=== PATIENT | male | born 1950 | race Caucasian/White ===

== ENCOUNTER → 2017-08-10 | Day surgery (SDC) | payer OTHER, BC ==
[~2017-08-10] VITALS: Ht 177.8 cm; Wt 93.0 kg
[~2017-08-10] MED LIST: ACETAMINOPHEN 325 MG TAB PO PRN; ADENOSINE IV SOLN 3 MG/ML 20 ML VIAL ONE; ASPI1TAB83 PO; ATOR-22 PO; ATOR-24 PO; ATROPINE SULFATE 0.1 MG/ML 5ML SYR IV PRN; CLOPIDOGREL BISULFATE 300 MG TAB PO ONE; CLOPIDOGREL BISULFATE 300 MG TAB PO STA; CLOPIDOGREL BISULFATE 75 MG TAB PO SCH; FENTANYL CITRATE INJ 50 MCG/1 ML 2 ML VIAL ONE; HEPARIN SOD (PORCINE) 1000 UNIT/ML 10 ML VIAL ONE; IBUP-1459 PO; LISI-729 PO; METO25TA3 PO; MIDAZOLAM HCL 1 MG/ML 2ML VIAL ONE; NITROGLYCERIN 0.4 MG SL PER TAB CHARGE SL PRN; NITROGLYCERIN/D5W 100MCG/ML 20ML SYR ONE; NTRSLP4 SL; NiCARDipine HCL INJ 2.5 MG/ML 10 ML AMP ONE; PLV75 PO; SODIUM CHLORIDE 0.9% 1000ML 1,000 ML IV SCH; SODIUM CHLORIDE 0.9% 1000ML 250 ML IV PRN
[2017-08-10 07:12] VITALS: BP 134/74; PULSE 61; TEMP 36.6; O2SAT 98; Ht 177.8 cm; Wt 93.0 kg
--- NOTE | 2017-08-10 08:45 | History & Physical Bridge Note ---
H&P Re-Evaluation Bridge Note: I have examined the patient, reviewed the History & Physical and in the interval since the performance of the History & Physical I have noted the following changes of clinical significance: No changes noted
--- NOTE | 2017-08-10 08:46 | Pre Sedation Assessment ---
Pre Sedation Assessment General Date of Sedation: Aug 10, 2017. Vital Signs Past 12 Hours Date Time Temp Pulse Resp B/P (MAP) Pulse Ox O2 Delivery O2 Flow Rate FiO2 08/10/17 07:12 36.6 61 18 134/74 (94) 98 Room Air Review Cardiovascular: regular rate, rhythm, no edema, no gallop, no murmur Lungs: chest non-tender, lungs clear Pre-Sedation Airway Assessment Smoking Status: Never Smoker Hx of Sleep Apnea: No Short Thick Neck: No Thyro-mental Distance: > 3 Finger Breadths Oral Cavity: WNL Mallampati Classification: Class II NPO Status Date of Last Intake of Fluids: Aug 09, 2017 Time of Last Intake of Fluids: 2200 Date of Last Intake of Solids: Aug 09, 2017 Time of Last Intake of Solids: 1999 Procedure Planning Contraindications for Sedation: None Current Medications Reviewed: Yes Notes The planned sedation has been discussed with the patient. Informed Consent was obtained. I have identified the patient, determined the appropriateness of sedation and have assessed the patient immediately prior to the procedure. All medicine(s) and interventions are by my order.
--- NOTE | 2017-08-10 10:06 | [facility] Post Operative Brief Note ---
Preliminary Procedure Note Procedure Date Aug 10, 2017. Pre-Procedure Diagnosis Angina, Positive Stress Test AUC Score 8 Post-Procedure Diagnosis Severe CAD Procedure(s) Performed Coronary Angiography, Left Heart Cath, LV Angiography Rail Operator Dr. Mono Hawthorne Lead Pharmacy Technician(s) Bela Negrete Estimated Blood Loss <15cc Medication(s) Fentanyl (12.5 mcg IV), Heparin (5000u IV), Nicardipine (300 mcg intraarterial after sheath insertion), Versed (1 mg IV), Lidocaine 1% (local infiltration) Preliminary Findings Right dominant coronary anatomy LM normal size, mild calcification LAD long Type 3 with diffuse calcification, 60-70% midvessel stenosis after large D1. D1 with 90% mid vessel stenosis LCX large but non dominant with large bifurcating OM and large PL branch. Distal OM branch occlusion 100% with L-L fill. Cx 30% prox, 40% after OM , OM long 50% RCA Dominant with diffuse moderate atherosclerosis LV EF 65% Recommendations PCI without planned CABG Specimens None Fluids (cc crystalloids) 47 Anesthesia Start 900 End 925 eBnji Mariee RN Disposition [employer] Holding/Recovery
--- NOTE | 2017-08-10 10:09 | Post Sedation Assessment ---
Post Sedation Assessment General Date of Sedation Aug 10, 2017. Vital Signs: Vital Signs Past 12 Hours Date Time Temp Pulse Resp B/P (MAP) Pulse Ox O2 Delivery O2 Flow Rate FiO2 08/10/17 07:12 36.6 61 18 134/74 (94) 98 Room Air Post Procedure Recovery Score Activity: (2) Moves 4 extremities * Respiration: (2) Deep breath/cough Circulation: (2) +/-20% PreAnes Value Consciousness: (2) Fully Awake Oxygen Saturation: (2) > 92% On Room Air Post Anesthesia Score: 10 Discharge Sedation Level of Care: Fast Track Phase II Post Sedation Plan On clinical assessment, the patient appears to have tolerated the sedation without complications. Patient is recovering as anticipated. Patient will continue to be monitored by nursing and may be discharged when sedation discharge criteria are met per below protocol. Upon Completions of procedure and additional 15 minutes continue every 5 minute vital signs and the P.A.R. score; then discharge to a Phase I or Fast Track to Phase II per the following guidelines: * Discharge Patient to appropriate Phase II area if PAR is 8 or greater or return to pre- procedure baseline. The post - procedure orders will be as directed. * If PAR score is less than 8 or not return to pre-procedure baseline then patient will follow Phase I monitoring till PAR is reached for Phase II. The Phase I may be done in procedure room or may call to secure a Phase I area. * If naloxone or flumazenil are used for reversal, hold in Phase I for an additional 60 -120 minutes before discharge to Phase II. Please call the Sedation Physician to re-evaluate and complete post-note for discharge to Phase II area. Do NOT discharge from procedure sedation or Phase 1 until post- sedation evaluation note is complete by procedure /sedation MD Sedation Discharge Instructions to be given to the patient at discharge to home.
--- NOTE | 2017-08-10 10:17 | Cardiac Catheterization ---
Procedure Note Procedure Date Aug 10, 2017. Pre-Procedure Diagnosis Positive Stress Test AUC Score 7 Post-Procedure Diagnosis Severe CAD Procedure(s) Performed Fractional Flow Brooks Physical Therapy Attendant Michael Reference Data Expert(s) Caden Estimated Blood Loss 15 Medication(s) Fentanyl, Heparin, Nicardipine, Versed, Lidocaine 1% Summary of Findings -- FFR of LAD, mid circumflex -- For full details of patients coronary angiography please see cath report dictated by Dr. Hawthorne. Patient with intermediate LAD disease and mild to moderate circumflex disease. Also noted to have severe distal diagonal disease. Decision to proceed with FFR. 6Fr right radial artery JL3.5 guide used to cannulate LM Straight FFR wire placed into distal LAD iFR 0.88 FFR 0.75 FFR wire placed into distal circumflex iFR 0.99 Post procedure angiography showed no coronary complications. Summary: 1. Severe obstructive LAD (FFR 0.75) and diagonal disease. 2. Non-obstructive mid circumflex disease (iFR 0.99). Recommendations: Plan for PCI of LAD and diagonal later this week. Hemodynamics Rest Ao: 101/55/75 Final Ao: 99/57/76 LV: 106/2 Recommendations PCI without planned CABG Specimens None Radiation Exposure (mGy) 1919 Contrast (mls) 130 Visi Fluids (cc crystalloids) 287 Drains None Anesthesia Moderate Procedural Complication(s) None Disposition [employer] [facility]/Recovery ACC Data Cardiac Status Clinical evaluation leading to the procedure CAD Presntation: Positive Stress Test Anginal Classification: CCS III Heart Failure: No, NYHA Class: CCS I Cardiogenic Shock w/in 24Hrs: No Cardiac Arrest w/in 24Hrs: No Imaging studies past 6 months: Yes Stress studies past 6 months: Yes Stress Echocardiogram: Yes - Indeterminant Diagnostic Physician's Name: Mono Hawthorne M.D. Status: Elective Closure Device Closure Device: StarClose, Radial Band Recommendations: PCI without planned CABG Intraprocedure Events Significant Dissection: No Perforation: No
--- NOTE | 2017-08-10 13:10 | Discharge Instructions ---
Discharge Instructions Procedure Procedure Date: Aug 10, 2017. Reason for Visit: Dyspnea On Exertion *Dr Hawthorne Doing*. Discharge Discharge Date: Aug 10, 2017. Discharge Diagnosis: Coronary artery disease Last Recorded Wt (Kilograms): 93 Anesthesia Post Anesthesia Instructions: If you have had General Anesthesia or IV Sedation: * Do not drive today. * Resume driving when surgeon permits. * Do not make important decisions or sign legal documents today. * Call surgeon for: 1. Temperature elevations greater than 101 degrees F. 2. Uncontrollable pain. 3. Excessive bleeding. 4. Persistent nausea and vomiting. 5. Medication intolerance (nausea, vomiting or rash). * For nausea and vomiting use only clear liquids such as: tea, soda, bouillon until nausea subsides, then gradually increase diet as tolerated. * If you have any concerns or questions, call your surgeon's office. If physician is unavailable and it is an emergency, call 911 or go to the nearest emergency room. Instructions Activity Recommendations: limitations as noted below Recommended Home Diet: resume previous diet Allergies: Coded Allergies: Sulfamethoxazole w/Trimethoprim (Unverified Allergy, Unknown, unknown, ) Follow Up Additional Instructions: ACTIVITY RECOMMENDATIONS: It is common to feel weak and fatigue for a few days. * Do not drive or operate any motorized equipment for the next three days. * Limit stair usage (2 or 3 trips a day only) for the next three days. * Do not lift anything heavier than 10 pounds for the next three days. * Do not engage in vigorous exercise or any sports for the next five days. * You may shower the day after your procedure, but do not immerse the area for three days. Cleanse the site gently with soap and water. SPECIAL CARE INSTRUCTIONS: * You may replace the pressure dressing or band-aid the morning after the procedure. * After your procedure, it is normal to have a small bruise or small lump at the site. Examine your site daily for any change in the bruise or lump, redness, swelling, drainage or numbness. Notify your doctor if any change. BLEEDING: * If there is a small amount of bleeding at the site, lie down and apply firm pressure with a clean cloth for ten minutes. When the bleeding stops, lie quietly keeping the procedure limb straight for six hours. Notify your doctor as soon as possible. * If the bleeding does not stop after ten minutes or if there is a large amount of bleeding or spurting, call 911 immediately. Continue to lie down and hold firm pressure until help arrives. SKIN IRRITATION: * You may experience some redness and/or swelling in the area where radiation was administered. If any skin irritation occurs, please contact your family physician. FOLLOW UP VISIT: Keep any scheduled doctor appointments. Follow-up with: Cardiac neurology technologist 08/12 at 12:30 Robel Coleman Recommendations: Call your doctor if: * Temperature above 101 degrees * Pain not relieved by pain medicine ordered * There is increased drainage or redness from any incision * You have any unanswered questions or concerns. Your Doctors Instructions noted above were prepared by provider Mono Hawthorne. Patient Signature Section: Patient Instructions Signature Page Romero Randhawa Patient (or Guardian) Signature/Date: I have read and understand the instructions given to me by my caregivers. Caregiver/RN/Doctor Signature/Date: The above-named patient and/or guardian has received patient instructions on this date. + Original Patient Signature Page (only) stays with chart. Please make copy for patient.
[2017-08-10 13:30] VITALS: BP 152/68; PULSE 63; O2SAT 100
--- NOTE | 2017-08-10 21:28 | CARDIAC CATH REPORT ---
PROCEDURE: Left heart catheterization, coronary and LV angiography. INDICATIONS: Exertional dyspnea, abnormal stress testing. HISTORY OF PRESENT ILLNESS: The patient is a 67-year-old male with history of prior diagnostic cardiac catheterization in 2007 after a syncopal event, demonstrating diffuse coronary calcification and atherosclerosis, had 50% mid LAD stenosis. Most recently, he has been notable for having a change in functional capacity, has exertional dyspnea since late last summer, now limiting in activities. Stress testing was equivocal. Stress echocardiography demonstrated flat LV function. He is referred for diagnostic cardiac catheterization. ACCESS: Right radial artery. CATHETERS: A 6-H[place]ian long [place] sheath, 5-Haitian brachial 3.5, 5-Haitian straight pigtail. CONTRAST: Nonionic, 116 mL Visipaque. IV FLUIDS: 47 mL normal saline. Sedation start time 9:01, end time 9:26. Monitor, Homer Mariee RN. MEDICATIONS: Sedation, 1 mg Versed and 12.5 mcg of IV fentanyl. Local infiltration of access site was performed using 1% lidocaine. After an arterial sheath was inserted, the patient received 300 mcg intraarterial injection of nicardipine. After central access gained, 5000 units IV heparin was given. COMPLICATIONS: None. RADIATION EXPOSURE: 3.4 minutes fluoroscopy, 1319 milligrays, 8154 DAP score. RESULTS: CORONARY ANGIOGRAPHY: Note that anatomy is right dominant. There is diffuse calcification and coronary atherosclerosis in all vasculature. LEFT MAIN: Left main is shortened and trifurcates to give rise to left anterior descending, a trivial ramus intermedius and the left circumflex. There is no disease in the left main. Mild calcification is visualized. LEFT ANTERIOR DESCENDING: Left anterior descending is type 3 in distribution with apical portion reaching well around the apex. The left anterior descending gives rise to a large septal, followed by a small diagonal branch. At the end of its proximal third, it gives rise to a large diagonal branch which parallels left anterior descending. Left anterior descending then courses to terminate well beyond the apex. Within the left anterior descending, there is diffuse calcification in its proximal third with moderate irregularities throughout the entire vessel. There is a discrete 70% stenosis after the origin of the second diagonal, disease extends into the origin of the second diagonal. The second diagonal also has a discrete 90% stenosis in its mid portion with a large portion beyond this area being supplied toward the lateral apex. LEFT CIRCUMFLEX: Left circumflex is large but nondominant and gives rise to a bifurcating obtuse marginal and a large posterolateral branch. Within the left circumflex, there is, as in all vessels, diffuse coronary atherosclerosis. There is a 50% narrowing after the obtuse marginal, part of the posterolateral branch. The obtuse marginal itself has a long area of 50% stenosis with distal complete occlusion of the inferior sub-branch which fills a small segment via left to left collateral. RIGHT CORONARY ARTERY: The right coronary artery is large in caliber and dominant in distribution and gives rise to a sinoatrial branch at its proximal third; at the AV groove, a long posterior descending artery, and along the AV groove, a long posterior ventricular branch. Within the right coronary artery, there are diffuse luminal irregularities of moderate severity in its middle and proximal segments with moderate ectasia, but no obstruction. LEFT VENTRICULAR ANGIOGRAPHY: The left ventricle is hyperdynamic, EF greater than 65%. There is no mitral insufficiency. HEMODYNAMICS: Initial aortic root pressure was 101/55 with a mean of 75. LV pressure was 105/1 with an EDP of 2. Following completion of study, aortic root pressure was 96/53 with a mean of 72. FINAL IMPRESSIONS: 1. Calcification and diffuse coronary atherosclerosis in all vasculature with right dominant anatomy. 2. Bifurcation lesion of the left anterior descending extending into the origin of a large second diagonal branch, narrowing the left anterior descending artery by 70% with a discrete 90% stenosis in the mid portion of the large second diagonal branch. 3. Nonobstructive atherosclerosis of the left circumflex and proximal circumflex obtuse marginal with 50% with distal occlusion 100% of the circumflex obtuse marginal inferior sub-branch as a small branch vessel disease. 4. Normal to hyperdynamic left ventricular function. RECOMMENDATIONS: The patient was referred for flow wire assessment of the left anterior descending artery lesion which was found to be significant. Left circumflex was not found to be hemodynamically significant. PLAN: The patient will return in separate setting for coronary intervention of the left anterior descending and left anterior descending diagonal. The patient begun on oral load with Plavix, atorvastatin increased to 80 mg per day. Anticipatory return on 08/12/2017.
== END | disposition home or self-care (01) ==
LOC: C.CATH 06:56
PROVIDERS: ATTEND Internal Medicine Cardiovascular Disease
DX: R06.00 Dyspnea, unspecified (principal); I25.10 Atherosclerotic heart disease of native coronary artery without angina pectoris; I10 Essential (primary) hypertension; E78.5 Hyperlipidemia, unspecified; Z79.82 Long term (current) use of aspirin; Z88.2 Allergy status to sulfonamides

== ENCOUNTER 2017-08-17 06:39 | Observation (INO) | payer OTHER, BC ==
[2017-08-12 11:30] VITALS: BP 136/72; PULSE 63; TEMP 36.6; O2SAT 96; BMI 29.0
[~2017-08-17] VITALS: Ht 177.8 cm; Wt 92.9 kg
[2017-08-17] VITALS (13 sets, daily range): BP systolic 128–147; BP diastolic 53–90; PULSE 59–87; TEMP 36.4–37.3; O2SAT 91–100; Ht 177.8 cm; Wt 92.9 kg
[~2017-08-17 06:39] MED LIST changes: -ACETAMINOPHEN 325 MG TAB PO PRN; -ADENOSINE IV SOLN 3 MG/ML 20 ML VIAL ONE; -ATOR-22 PO; -ATROPINE SULFATE 0.1 MG/ML 5ML SYR IV PRN; -CLOPIDOGREL BISULFATE 300 MG TAB PO ONE; -CLOPIDOGREL BISULFATE 300 MG TAB PO STA; -CLOPIDOGREL BISULFATE 75 MG TAB PO SCH; -FENTANYL CITRATE INJ 50 MCG/1 ML 2 ML VIAL ONE; -HEPARIN SOD (PORCINE) 1000 UNIT/ML 10 ML VIAL ONE; -IBUP-1459 PO; -MIDAZOLAM HCL 1 MG/ML 2ML VIAL ONE; -NITROGLYCERIN 0.4 MG SL PER TAB CHARGE SL PRN; -NITROGLYCERIN/D5W 100MCG/ML 20ML SYR ONE; -NiCARDipine HCL INJ 2.5 MG/ML 10 ML AMP ONE; -SODIUM CHLORIDE 0.9% 1000ML 1,000 ML IV SCH; -SODIUM CHLORIDE 0.9% 1000ML 250 ML IV PRN
--- NOTE | 2017-08-17 07:36 | Pre Sedation Assessment ---
Pre Sedation Assessment General Date of Sedation: Aug 17, 2017. Vital Signs Past 12 Hours Date Time Temp Pulse Resp B/P (MAP) Pulse Ox O2 Delivery O2 Flow Rate FiO2 08/17/17 06:52 36.5 87 18 128/65 (86) 95 Room Air Review Cardiovascular: regular rate, rhythm, no edema Lungs: chest non-tender, lungs clear Pre-Sedation Airway Assessment Smoking Status: Never Smoker Hx of Sleep Apnea: No Hx of difficult intubation: No Short Thick Neck: No Thyro-mental Distance: > 3 Finger Breadths Oral Cavity: WNL Mallampati Classification: Class I ASA Classification: Class II NPO Status Date of Last Intake of Fluids: Aug 16, 2017 Time of Last Intake of Fluids: 0900 Date of Last Intake of Solids: Aug 16, 2017 Time of Last Intake of Solids: 2100 Procedure Planning Contraindications for Sedation: None Current Medications Reviewed: Yes Notes The planned sedation has been discussed with the patient. Informed Consent was obtained. I have identified the patient, determined the appropriateness of sedation and have assessed the patient immediately prior to the procedure. All medicine(s) and interventions are by my order.
[2017-08-17] MEDS ORDERED: HEPARIN SOD (PORCINE) 1000 UNIT/ML 10 ML VIAL ONE ×2 (07:55→09:01)
[2017-08-17] MEDS ORDERED: NiCARDipine HCL INJ 2.5 MG/ML 10 ML AMP ONE (07:55)
[2017-08-17] MEDS ORDERED: NITROGLYCERIN/D5W 100MCG/ML 20ML SYR ONE (07:55)
[2017-08-17] MEDS ORDERED: MIDAZOLAM HCL 1 MG/ML 2ML VIAL ONE ×2 (07:56→09:12)
[2017-08-17] MEDS ORDERED: FENTANYL CITRATE INJ 50 MCG/1 ML 2 ML VIAL ONE (07:56)
[2017-08-17] MEDS ORDERED: ATROPINE SULFATE 0.1 MG/ML 10 ML SYR ONE (09:40)
[2017-08-17] MEDS ORDERED: CLOPIDOGREL BISULFATE 300 MG TAB PO ONE (09:40)
--- NOTE | 2017-08-17 10:27 | Post Sedation Assessment ---
Post Sedation Assessment General Date of Sedation Aug 17, 2017. Vital Signs: Vital Signs Past 12 Hours Date Time Temp Pulse Resp B/P (MAP) Pulse Ox O2 Delivery O2 Flow Rate FiO2 08/17/17 10:15 68 16 107/82 (90) 98 Room Air 08/17/17 06:52 36.5 87 18 128/65 (86) 95 Room Air Post Procedure Recovery Score Activity: (2) Moves 4 extremities * Respiration: (2) Deep breath/cough Circulation: (2) +/-20% PreAnes Value Consciousness: (2) Fully Awake Oxygen Saturation: (2) > 92% On Room Air Post Anesthesia Score: 10 Discharge Sedation Level of Care: Fast Track Phase II Post Sedation Plan On clinical assessment, the patient appears to have tolerated the sedation without complications. Patient is recovering as anticipated. Patient will continue to be monitored by nursing and may be discharged when sedation discharge criteria are met per below protocol. Upon Completions of procedure and additional 15 minutes continue every 5 minute vital signs and the P.A.R. score; then discharge to a Phase I or Fast Track to Phase II per the following guidelines: * Discharge Patient to appropriate Phase II area if PAR is 8 or greater or return to pre- procedure baseline. The post - procedure orders will be as directed. * If PAR score is less than 8 or not return to pre-procedure baseline then patient will follow Phase I monitoring till PAR is reached for Phase II. The Phase I may be done in procedure room or may call to secure a Phase I area. * If naloxone or flumazenil are used for reversal, hold in Phase I for an additional 60 -120 minutes before discharge to Phase II. Please call the Sedation Physician to re-evaluate and complete post-note for discharge to Phase II area. Do NOT discharge from procedure sedation or Phase 1 until post- sedation evaluation note is complete by procedure /sedation MD Sedation Discharge Instructions to be given to the patient at discharge to home.
[2017-08-17] MEDS ORDERED: NITROGLYCERIN 0.4 MG SL PER TAB CHARGE SL PRN ×2 (10:30)
[2017-08-17] MEDS ORDERED: SODIUM CHLORIDE 0.9% 1000ML 1,000 ML IV SCH (10:30)
[2017-08-17] MEDS ORDERED: ACETAMINOPHEN 325 MG TAB PO PRN (10:30)
--- NOTE | 2017-08-17 13:00 | Cardiac Catheterization ---
Procedure Note Procedure Date Aug 17, 2017. Pre-Procedure Diagnosis Angina AUC Score 7 Post-Procedure Diagnosis Severe CAD, Successful PCI Procedure(s) Performed Drug Eluting Stent Straightedge Man [employer] Hvac R Instructor(s) Glunt Estimated Blood Loss 25 Medication(s) Clopidogrel, Fentanyl, Heparin, Nicardipine, Nitroglycerin, Versed, Lidocaine 1% Summary of Findings Indication: Refractory CCS class 3 angina despite maximal medical therapy - LAD + FFR Access: 6Fr right radial artery Catheters: EBU3.5 guide -- PCI -- Antithrombotic therapy: Heparin, Clopidogrel Procedure: LM cannulated with EBU 3.5 guide Medical Supply Technician 50 wire passed across lesion into distal 1st diagonal Whisper wire placed into distal LAD Diagonal lesions pre-dilated with 2.0 and 2.5 balloons. LAD dilated with 2.0 and 2.5 balloons. Distal diagonal lesion stented with 2.25 x 15 Juan LISA 2nd LISA placed to diagonal ostium overlapping distally with initial stent (2.5 x 30 Juan), post-dilated with stent balloon 3.0 x 26 Juan LISA placed to mid LAD across take-off of 1st diagonal (stent delivered with aid of a guideliner) Stent post-dilated with 3.0 noncompliant balloon to high atmospheres IC vasodilators administered for spasm Post procedure GILDA 3 flow, stent well expanded with minimal residual stenosis and no apparent cardiac complications. Arterial Closure: TR Band Summary: 1. Successful PCI of mid LAD, 1st diagonal bifurcation with 3 drug-eluting stents (mid LAD 3.0 x 26; diagonal 2.5 x 30, 2.25 x 15 [place]) Recommendations: To PCU for continued monitoring Reloaded with clopidogrel 300mg in skill labor Continue dual-antiplatelet therapy for at least 6 months, likely extended with complex bifurcation stenting. Continue statin, and ASCVD risk factor modification per Dr. Hawthorne Consult cardiac Rehab Hemodynamics Rest Ao: 87/59/72 Final Ao: 115/81/97 LV: -- Recommendations PCI without planned CABG Specimens None Radiation Exposure (mGy) 7684 Patient counseled on sign/sxs of high radiation exposure Contrast (mls) 225 Visi Fluids (cc crystalloids) 515 Drains None Anesthesia Moderate Procedural Complication(s) None Disposition PCU ACC Data Cardiac Status Clinical evaluation leading to the procedure CAD Presntation: Stable angina Anginal Classification: CCS III Heart Failure: No, NYHA Class: CCS I Cardiogenic Shock w/in 24Hrs: No Imaging studies past 6 months: Yes Stress studies past 6 months: No Closure Device Percutaneous Entry Location: Radial Closure Device: Radial Band Recommendations: PCI without planned CABG PCI Indication: Angina despite med therapy Lesion Segment Name: Mid LAD/1st diagonal Culprit Artery: Yes Stenosis Prior to Rx (%): 70 Chronic Total Occlusion: No IVUS: No FFR: Yes (during prior cardiac cath) Ratio: less than or equal to 0.75% Previously Treated Lesion: No Lesion Complexity: High/C Lesion Length (mm): 23 Thrombus Present: No Bifurcation Lesion: Yes Guidewire Across Lesion: Yes Guidewire: Stenosis Post-Procedure (%): 0 Post-Procedure GILDA Flow: 3 Device(s) Deployed: Yes Intraprocedure Events Significant Dissection: No Perforation: No
[2017-08-17] MEDS ORDERED: IV FLUIDS COMPLETED PRN (16:15)
[2017-08-18 00:37] VITALS: BP 113/70; PULSE 70; TEMP 36.8; O2SAT 94
[2017-08-18 04:31] VITALS: BP 118/78; PULSE 68; TEMP 36.9; O2SAT 95
[2017-08-18 07:36] LABS: BASO % 0.3 %; BASO ABS # 0.02 K/uL (0-0.2); EOS % 3.9 %; HEMATOCRIT 40.7 % (42-52); HEMOGLOBIN 14.5 g/dL (14.0-18.0); IG# 0.02 K/uL (0.00-0.02); LYMPH % 16.7 %; LYMPH ABS # 1.28 K/uL (1.2-3.4); MEAN CELL VOLUME 92.5 fL (80-100); MEAN CORPUSCULAR HGB CONC 35.6 g/dl (32-36); MEAN PLATELET VOLUME 9.2 fL (7.4-10.4); MONO ABS # 0.61 K/uL (0.11-0.59); NEUT % 70.8 %; NEUT ABS # 5.43 K/uL (1.4-6.5); PLATELET COUNT 178 K/uL (130-400); RED CELL DISTRIBUTION WIDTH CV 12.9 % (11.5-14.5); RED CELL DISTRIBUTION WIDTH SD 43.5 fL (36.4-46.3); WHITE BLOOD COUNT 7.66 K/uL (4.8-10.8)
--- NOTE | 2017-08-18 07:43 | Discharge Instructions ---
Discharge Instructions Procedure Procedure Date: Aug 18, 2017. Reason for Visit: Cad Rodriguez To Do. Discharge Discharge Date: Aug 18, 2017. Discharge Diagnosis: Coronary artery disease post coronary stenting Last Recorded Wt (Kilograms): 92.900 Instructions Activity Recommendations: limitations as noted below Recommended Home Diet: low sodium, low cholesterol (Target a plant based diet) Allergies: Coded Allergies: Sulfamethoxazole w/Trimethoprim (Unverified Allergy, Unknown, unknown, ) Follow Up Additional Instructions: ACTIVITY RECOMMENDATIONS: Excess manipulation of the wrist should be avoided for the next 24-48 hours. * No lifting over 2 pounds (approximately a 1/2 gallon of milk) with the utilized arm for 24 hours. * No strenuous activity such as bowling or tennis for 3 days. * Keep the site of the procedure covered with a bandage for 24 hours. *You may shower the day after the procedure. Do not take a tub bath or submerge the puncture site in water for the next 3 days. *Do not operate any motorized equipment for 3 days. SPECIAL CARE INSTRUCTIONS: The site may be slightly bruised and sore following your procedure. Should any of the following occur, contact the Dr. who performed your procedure. 1. Redness/inflammation, swelling, chills, or fever, or colored drainage at procedure site within 3-7 days after your procedure. 2. Coldness, discoloration, ongoing numbness, severe pain, or swelling. Expect mild tingling of hand and tenderness at the puncture site for up to three days. If this persists beyond three days, or other symptoms develop, notify the Dr. who performed your procedure. BLEEDING: If the procedure site on your wrist begins to bleed, do not panic 1. Place 1 or 2 fingers firmly just slightly above the insertion site to stop the bleeding. You may be able to feel your pulse as you hold pressure. 2. Lift your finger after 5 minutes to see if the bleeding has stopped. 3. Once the bleeding has stopped, gently wipe the wrist area clean with a bandage. * If the bleeding from your wrist does not stop after 10 minutes, or if there is a large amount of bleeding or spurting, call 911 (do not drive yourself to the hospital). SKIN IRRITATION: * You may experience some redness and/or swelling in the area where radiation was administered. If any skin irritation occurs, please contact your family physician. FOLLOW UP VISIT: Keep any scheduled doctor appointments. Follow-up with: Dr. Hawthorne as scheduled Robel Coleman Recommendations: Call your doctor if: * Temperature above 101 degrees * Pain not relieved by pain medicine ordered * There is increased drainage or redness from any incision * You have any unanswered questions or concerns. Your Doctors Instructions noted above were prepared by provider Manuel Rodriguez. Patient Signature Section: Patient Instructions Signature Page Romero Randhawa Patient (or Guardian) Signature/Date: I have read and understand the instructions given to me by my caregivers. Caregiver/RN/Doctor Signature/Date: The above-named patient and/or guardian has received patient instructions on this date. + Original Patient Signature Page (only) stays with chart. Please make copy for patient.
[2017-08-18 08:07] VITALS: BP 133/75; PULSE 63; TEMP 36.6; O2SAT 97
[2017-08-18 08:25] LABS: CALCIUM 8.3 mg/dl (8.5-10.1); CREATININE 0.87 mg/dl (0.60-1.40)
[2017-08-18] MEDS ORDERED: LISINOPRIL 5 MG TAB PO SCH (09:00)
[2017-08-18] MEDS ORDERED: ASPIRIN 81 MG ECTAB PO SCH (09:00)
[2017-08-18] MEDS ORDERED: CLOPIDOGREL BISULFATE 75 MG TAB PO SCH (09:00)
[2017-08-18] MEDS ORDERED: ATORVASTATIN 40 MG TAB PO SCH (09:00)
[2017-08-18] MEDS ORDERED: METOPROLOL SUCC 25MG EXT REL TAB PO SCH (09:00)
[2017-08-18 09:39] VITALS: BP 133/75; PULSE 63; TEMP 36.6; O2SAT 97
--- NOTE | 2017-08-20 01:12 | DISCHARGE SUMMARY ---
PRINCIPAL DIAGNOSES: Coronary artery disease. PROCEDURES: PCI with drug-eluting stent to LAD/diagonal bifurcation. HISTORY OF PRESENT ILLNESS: Mr. Randhawa is a 67-year-old man with a history of progressive shortness of breath, found to have severe coronary artery disease last week on diagnostic coronary angiography. He was noted to have severe diagonal disease as well as intermediate mid LAD disease which was noted to be hemodynamically significant by FFR. He was brought back today for planned PCI. HOSPITAL COURSE: The patient underwent PCI via right radial artery. PCI completed with 3 total drug-eluting stent, 1 to mid LAD (3.0 x 26 mm and 2 to diagonal 2.5 x 30 and 2.225 x 15, all stent were Juan drug-eluting stent). Postprocedure, the patient was admitted to telemetry for further observation. He had no additional chest pain. He had no significant complications of his right radial artery access site. Morning labs were stable, and he was discharged home on post-procedure day #1. He will follow up with Dr. Hawthorne, [facility] cardi[facility] and will be continued on dual antiplatelet therapy for at least the next 6 months. DISCHARGE MEDICATIONS: 1. Aspirin 81 mg. 2. Atorvastatin 40 mg. 3. Clopidogrel 75 mg. 4. Lisinopril 5 mg. 5. Metoprolol 25 mg daily (Toprol-XL). 6. Nitroglycerin 0.4 mg sublingual q. 5 p.r.n.
== END 2017-08-18 10:00 | disposition home or self-care (01) ==
LOC: C.CATH 06:39 → ENRESERV 08:48 → C.2T 10:30
PROVIDERS: ADMIT Internal Medicine Interventional Cardiology; ATTEND Internal Medicine Interventional Cardiology
DX: I25.10 Atherosclerotic heart disease of native coronary artery without angina pectoris (principal); I10 Essential (primary) hypertension; E78.5 Hyperlipidemia, unspecified; Z79.899 Other long term (current) drug therapy; Z79.82 Long term (current) use of aspirin